=== PATIENT | male | born 1980 | race Caucasian/White ===

== ENCOUNTER 2018-09-11 15:45 | Emergency (ER) | payer OTHER ==
[2018-09-11] MEDS ORDERED: PROPOFOL 100 ML IV ONE (15:49)
[2018-09-11] MEDS ORDERED: SUCCINYLCHOLINE 200 MG/10 ML VIAL. ONE (15:50)
[2018-09-11] MEDS ORDERED: NALOXONE 2 MG/2 ML DISP.SYRIN. IV ONE (15:50)
[2018-09-11] MEDS ORDERED: NALOXONE 0.4 MG/ML VIAL. ONE (15:50)
[2018-09-11] MEDS ORDERED: IV NORMAL SALINE 1,000ML 1,000 ML IV SCH (15:51)
[2018-09-11 16:15] LABS: BASO # 0.1 x10^3/uL (0.0-0.2); BASO % 1 % (0-3); EOS # 0.2 x10^3/uL (0.0-0.7); EOS % 2 % (0-3); HEMATOCRIT 41.5 % (39.0-53.0); HEMOGLOBIN 14.1 g/dL (13.0-17.5); LYMPH # 4.8 x10^3/uL (1.0-4.8); LYMPH % 44 % (24-48); MEAN CORPUSCULAR HEMOGLOBIN 31 pg (25-35); MEAN CORPUSCULAR HGB CONC 34 g/dL (31-37); MEAN CORPUSCULAR VOLUME 92 fL (79-100); MONO # 0.5 x10^3/uL (0.0-1.1); MONO % 5 % (0-9); NEUT # 5.3 x10^3uL (1.8-7.7); NEUT % 49 % (31-73); PLATELET COUNT 299 x10^3/uL (140-400); RED BLOOD COUNT 4.52 x10^6/uL (4.30-5.70); RED CELL DISTRIBUTION WIDTH 14.3 % (11.5-14.5); WHITE BLOOD COUNT 10.9 x10^3/uL (4.0-11.0)
--- NOTE | 2018-09-11 16:21 | PHYS DOC ---
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 EMS reported that patient had GCS of 3 with spontaneous respiration. Patient did not have characteristics at arrival to ER mild tachycardia without hypertension or hypoxia. Patient was unresponsive to painful stimuli. Review of Systems Review of Systems Unable to obtain because of unresponsiveness Current Medications Current Medications Current Medications Medications (Trade) Dose Ordered Sig/Hui Start Time Stop Time Status Last Admin Dose Admin Naloxone HCl (Narcan) 0.4 mg STK-MED ONCE 09/11/18 15:50 09/11/18 15:51 DC Propofol 100 ml @ As Directed STK-MED ONCE 09/11/18 15:49 09/11/18 15:50 DC Sodium Chloride 1,000 ml @ 1,000 mls/hr Q1H 09/11/18 15:51 09/11/18 16:50 Succinylcholine Chloride (Anectine) 200 mg STK-MED ONCE 09/11/18 15:50 09/11/18 15:51 DC Allergies Allergies Allergies Coded Allergies Type Severity Reaction Last Updated Verified No Known Drug Allergies 09/11/18 No Physical Exam Physical Exam Constitutional: Well nourished, unresponsive, non-toxic appearance. [] HENT: Normocephalic, atraumatic, no presence of gag reflex Eyes: Mild dilated bilateral pupils more in the right side with sluggish reaction to light Neck: No sign of injury Cardiovascular: Tachycardia Lungs & Thorax: Coarse bilateral breath sounds Abdomen: No sign of injury or distention Skin: Warm, dry, no erythema, no rash. [] Back: No no sign of injury Extremities: No sign of injury, does not move extremity Neurologic: Unresponsive unable to evaluate, GCS of 3 Psychologic: Unable to evaluate EKG EKG Page interpreted by me. EKG at 1640 showed sinus tachycardia at rate of 105, otherwise normal EKG Radiology/Procedures Radiology/Procedures IMAGING REPORT Signed PATIENT: YOEL ALMANZA ACCOUNT: [id number] : 1980 LOCATION: ER AGE: 38 SEX: M EXAM STATUS: REG ER ORD. PHYSICIAN: SUSAN ADKINS MD REASON: ALOC PROCEDURE: PORTABLE CHEST 1V Portable chest, 09/11/2018, 3:26 PM: HISTORY: Check tube placements, altered level of consciousness An ET tube is in place with its tip located 6 cm above the rabia. The tip of the NG tube lies in the distal esophagus. The heart is at the upper limits of normal in size. No pulmonary infiltrate is seen. There is no evidence of pleural fluid or pneumothorax. IMPRESSION: 1. The ET tube is in satisfactory position. 2. The tip of the NG tube lies in the distal esophagus and that tube should be advanced. 3. No acute cardiopulmonary abnormality is detected. Electronically signed by: Elijah Santizo MD (09/11/2018 4:50 PM) [facility] DICTATED AND SIGNED BY: ELIJAH SANTIZO MD DATE: 09/11/181647 CC: SUSAN ADKINS MD; PCP,NO ~ [address] [address] IMAGING REPORT Signed PATIENT: YOEL ALMANZA ACCOUNT: [id number] : 1980 LOCATION: ER AGE: 38 SEX: M EXAM STATUS: REG ER ORD. PHYSICIAN: SUSAN ADKINS MD REASON: ALOC PROCEDURE: CT HEAD AND CERVICAL SPINE WO CT of the head without contrast, 09/11/2018: HISTORY: Patient unresponsive The ventricles are within normal limits in size. There is no shift of the midline structures. There is no evidence of acute intracranial hemorrhage or mass effect. There is mild mucosal thickening in the maxillary and ethmoid sinuses. IMPRESSION: No acute intracranial abnormality is detected. CT of the cervical spine without contrast, 09/11/2018: Noncontrast scans were obtained with multiplanar reconstructions produced. No fracture or dislocation is identified. There is mild posterior disc bulging and marginal spurring at C4-5. No significant central spinal stenosis is evident. Note is made that the oral gastric tube has formed a loop in the posterior oropharynx. IMPRESSION: No acute cervical spine abnormality is detected. Electronically signed by: Elijah Santizo MD (09/11/2018 4:57 PM) [facility] DICTATED AND SIGNED BY: ELIJAH SANTIZO MD DATE: 09/11/18 165 CC: SUSAN ADKINS MD; PCP,RENEE ~ Course & Med Decision Making Course & Med Decision Making Pertinent Labs and Imaging studies reviewed. (See chart for details) Evaluation of patient in ER showed 38-year-old male patient brought in with GCS of 3 and alcohol intoxication. Patient did not have characteristics and did not respond to Narcan 1 mg IV. Patient was intubated at 1602 with stable vital signs. Dr. Lind accepted transfer to [facility] at 1610. Dragon Disclaimer Dragon Disclaimer This electronic medical record was generated, in whole or in part, using a voice recognition dictation system. 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 Cricoid pressure was performed. Intubation was performed with Mac laryngoscope blade of with #3 blade and cords visualized directly. E tube size 7.5 was inserted with the second try . E tube secured at 22 cm from teeth. Initial confirmation of placement included change of color of CO2 detector, direct visualization of vocal cords, bilateral chest rise. A chest x-ray to verify correct placement of the tube ET tube. The patient tolerated the procedure well. Complications: none. Critical Care Time Critical care time was 70 minutes exclusive of procedures. Departure Departure: Impression: Primary Impression: Alcohol intoxication Additional Impressions: Acute respiratory failure Elevated lactic acid level Disposition: [facility] ([facility] at 1611) Admitting Physician: Janelle Lind (accepted transfer to [facility] at 1610) Condition: CRITICAL Referrals: PCP,RENEE (PCP) Problem Qualifiers SUSAN ADKINS MD Sep 11, 2018 16:21
[2018-09-11 16:34] LABS: ALBUMIN 3.9 g/dL (3.4-5.0); CALCIUM 8.4 mg/dL (8.5-10.1); CREATININE 0.9 mg/dL (0.7-1.3); DIRECT BILIRUBIN 0.1 mg/dL (0.0-0.2); MAGNESIUM 2.1 mg/dL (1.8-2.4); POTASSIUM 3.7 mmol/L (3.5-5.1); TOTAL BILIRUBIN 0.4 mg/dL (0.2-1.0); TOTAL PROTEIN 7.1 g/dL (6.4-8.2)
[2018-09-11 16:41] LABS: SALIC 0.9 mg/dL (2.8-20.0)
[2018-09-11 16:42] LABS: ACETAMIN < 2.0 mcg/mL (10-30); ETHANOL 530 mg/dL (0-10)
--- NOTE | 2018-09-11 16:43 | EKG ---
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
[2018-09-11 16:45] LABS: AMPHETAMINE/METHAMPHETAMINE NEG (NEG); BARBITURATES NEG (NEG); BENZODIAZEPINES NEG (NEG); CANNABINOIDS NEG (NEG); COCAINE NEG (NEG); METHADONE NEG (NEG); OPIATES NEG (NEG); PHENCYCLIDINE NEG (NEG)
[2018-09-11] MEDS ORDERED: IV NORMAL SALINE 1,000ML 1,000 ML IV ONE (16:45)
--- NOTE | 2018-09-11 16:54 | RAD ---
Portable chest, 09/11/2018, 3:26 PM: HISTORY: Check tube placements, altered level of consciousness An ET tube is in place with its tip located 6 cm above the rabia. The tip of the NG tube lies in the distal esophagus. The heart is at the upper limits of normal in size. No pulmonary infiltrate is seen. There is no evidence of pleural fluid or pneumothorax. IMPRESSION: 1. The ET tube is in satisfactory position. 2. The tip of the NG tube lies in the distal esophagus and that tube should be advanced. 3. No acute cardiopulmonary abnormality is detected. Electronically signed by: Elijah Santizo MD (09/11/2018 4:50 PM) [facility]
[2018-09-11 16:56] LABS: BACTERIA,URINE 0 /HPF (0-FEW); BILIRUBIN,URINE NEG (NEG); CLARITY,URINE CLEAR; COLOR,URINE STRAW; GLUCOSE,URINE NEG (NEG); NITRITE,URINE NEG (NEG); RBC,URINE 0 /HPF (0-2); SQUAMOUS EPITHELIAL CELL,UR OCC /LPF; UROBILINOGEN,URINE 0.2 mg/dL (0.2 mg/dL); WBC,URINE RARE /HPF (0-4)
[2018-09-11 16:57] LABS: BGAS PH 7.3 (7.35-7.46)
[2018-09-11] MEDS ORDERED: MVI, ADULT NO.4 WITH VIT K 10 ML, FOLIC ACID SYRINGE for ER 1 MG, THIAMINE INJ 100 MG i... IV ONE ×4 (17:00)
[2018-09-11] MEDS ORDERED: ETOMIDATE 40 MG/20 ML VIAL. IV ONE (17:00)
--- NOTE | 2018-09-11 17:01 | RAD ---
CT of the head without contrast, 09/11/2018: HISTORY: Patient unresponsive The ventricles are within normal limits in size. There is no shift of the midline structures. There is no evidence of acute intracranial hemorrhage or mass effect. There is mild mucosal thickening in the maxillary and ethmoid sinuses. IMPRESSION: No acute intracranial abnormality is detected. CT of the cervical spine without contrast, 09/11/2018: Noncontrast scans were obtained with multiplanar reconstructions produced. No fracture or dislocation is identified. There is mild posterior disc bulging and marginal spurring at C4-5. No significant central spinal stenosis is evident. Note is made that the oral gastric tube has formed a loop in the posterior oropharynx. IMPRESSION: No acute cervical spine abnormality is detected. Electronically signed by: Elijah Santizo MD (09/11/2018 4:57 PM) [facility]
[2018-09-11] MEDS ORDERED: cefTRIAXone SODIUM 1 GM VIAL IV ONE (17:14)
[2018-09-11] MEDS ORDERED: IV NORMAL SALINE 50ML 50 ML ONE (17:14)
[2018-09-11] MEDS ORDERED: NALOXONE 0.4 MG/ML VIAL. IV ONE (17:15)
[2018-09-11 17:28] VITALS: BP 111/62
[2018-09-11] MEDS ORDERED: PROPOFOL 10,000 MCG/ML (20ML) VIAL IV ONE (17:30)
== END 2018-09-11 17:45 | disposition short-term general hospital (02) ==
LOC: ER 15:45
DX: J96.00 Acute respiratory failure, unspecified whether with hypoxia or hypercapnia (principal); F10.129 Alcohol abuse with intoxication, unspecified; R74.0 Nonspecific elevation of levels of transaminase and lactic acid dehydrogenase [LDH]; Y90.9 Presence of alcohol in blood, level not specified
CPT/HCPCS: 31500; 36415; 36600; 51702; 70450; 71045; 72125; 80048; 80076; 80307; 81001; 82140; 82550; 82803; 83605; 83690; 83735; 84484; 85025; 85610; 87040; 93005; 96361; 96365; 96367; 96375; 99291; G0480; G6039; J0696; J2310; J2704; 94002; 82003; J7030